=== PATIENT | female | born 1990 | race Caucasian/White ===

== ENCOUNTER → 2016-08-24 | Outpatient (REF) | payer BC, OTHER | LOC: M LAB REF 17:11 | PROVIDERS: ATTEND Physician Assistant | DX: J02.9 Acute pharyngitis, unspecified (principal) ==

== ENCOUNTER → 2016-10-22 | Outpatient (REF) | payer BC, OTHER | LOC: M SFHCLERA 08:53 | PROVIDERS: ATTEND Family Medicine | DX: Z53.8 Procedure and treatment not carried out for other reasons (principal); E53.8 Deficiency of other specified B group vitamins; F41.9 Anxiety disorder, unspecified; E55.9 Vitamin D deficiency, unspecified ==

== ENCOUNTER → 2016-10-28 | Outpatient (REF) | payer BC, OTHER ==
[2016-10-28 12:35] LABS: FREE T4 0.81 NG/DL (0.76-1.46)
== END ==
LOC: M SFHCLERA 08:41
PROVIDERS: ATTEND Family Medicine
DX: E53.8 Deficiency of other specified B group vitamins (principal); F41.9 Anxiety disorder, unspecified; E55.9 Vitamin D deficiency, unspecified

== ENCOUNTER → 2016-12-08 | Outpatient (CLI) | payer BC, OTHER ==
--- NOTE | 2016-12-08 13:13 | REP ---
The PA and lateral chest: There are no comparisons. The lung weber are clear. The cardiac size is normal The geovanna, mediastinum, and bony thorax are unremarkable. Impression: Negative PA and lateral chest. Signed by Danish Caban MD 12/08/2016 01:05 P
== END ==
LOC: M LRY 12:37
PROVIDERS: ATTEND Nurse Practitioner Family
DX: R05 Cough (principal)

== ENCOUNTER → 2016-12-22 | Outpatient (REF) | payer BC, OTHER | LOC: M LAB 16:39 → EDSTATUS 12-23 07:12 | PROVIDERS: ATTEND Nurse Practitioner Adult Health | DX: Z02.89 Encounter for other administrative examinations (principal) ==

== ENCOUNTER → 2016-12-24 | Outpatient (REF) | payer BC, OTHER ==
[2016-12-24 20:32] LABS: CONTROL LINE UCG INT CTR LINE PRESENT
[2016-12-24 20:39] LABS: BASO % 0.2 % (0.0-1.0); EOS % 0.4 % (0.0-3.0); IMMATURE GRANULOCYTE % 0.1 % (0-0); LYMPH % 11.3 % (24.0-44.0); MEAN CORPUSCULAR HEMOGLOBIN 28.2 pg (27.0-33.0); MEAN CORPUSCULAR HGB CONC 32.2 g/dl (32.0-36.5); MEAN CORPUSCULAR VOLUME 87.4 fl (80.0-96.0); MONO # 0.7 10^3/uL (0.0-0.8); MONO % 7.9 % (0.0-5.0); NEUTROPHILS # 6.9 10^3/uL (1.8-7.7); NEUTROPHILS % 80.1 % (36.0-66.0); PLATELET COUNT, AUTOMATED 288 10^3/uL (150-450); RED CELL DISTRIBUTION WIDTH 12.3 % (11.5-14.5); WHITE BLOOD COUNT 8.6 10^3/uL (4.0-10.0)
[2016-12-24 21:25] LABS: ANION GAP 5 MEQ/L (8-16); BLOOD UREA NITROGEN 10 MG/DL (7-18); CARBON DIOXIDE LEVEL 30 MEQ/L (21-32); CHLORIDE LEVEL 103 MEQ/L (98-107); CREATININE FOR GFR 0.63 MG/DL (0.55-1.02); GLOMERULAR FILTRATION RATE > 60.0 (>60); GLUCOSE, FASTING 67 MG/DL (70-105); POTASSIUM SERUM 3.9 MEQ/L (3.5-5.1); SODIUM LEVEL 138 MEQ/L (136-145)
== END ==
LOC: M SFHCLERA 14:38
PROVIDERS: ATTEND Family Medicine
DX: N12 Tubulo-interstitial nephritis, not specified as acute or chronic (principal)

== ENCOUNTER → 2016-12-25 | Outpatient (CLI) | payer BC, OTHER ==
--- NOTE | 2016-12-25 11:19 | REP ---
CT ABDOMEN AND PELVIS WITHOUT IV CONTRAST: CT abdomen and pelvis performed without oral or IV contrast, with sagittal and coronal reconstruction images performed. The visualized lung bases are clear. The liver, gallbladder, spleen, adrenals, pancreas and kidneys are grossly unremarkable. No renal or ureteral calculus is seen and there is no hydroureteronephrosis. There is no abdominal aortic aneurysm. There is no adenopathy. There is no free air or free fluid. There is no bowel wall thickening. There is no evidence of appendicitis. There is no gross pelvic mass. Urinary bladder is not well distended and not well evaluated but there is no gross intraluminal calculus. IMPRESSION: No renal or ureteral calculus and no hydroureteronephrosis. No evidence of appendicitis. Signed by Danish Jackson MD 12/28/2016 09:47 A
== END ==
LOC: M RAD 10:22
PROVIDERS: ATTEND Family Medicine
DX: N12 Tubulo-interstitial nephritis, not specified as acute or chronic (principal)

== ENCOUNTER → 2017-02-01 | Outpatient (REF) | payer BC, OTHER | LOC: M SFHCLERA 16:25 | PROVIDERS: ATTEND Family Medicine | DX: R30.0 Dysuria (principal) ==

== ENCOUNTER 2017-02-21 18:32 | Emergency (ER) | payer BC, OTHER ==
[~2017-02-21] VITALS: Ht 170.2 cm; Wt 72.7 kg
[2017-02-21] MEDS ORDERED: OMEP40CA2 PO (18:39)
[2017-02-21] MEDS ORDERED: POLY1POW4 (18:39)
[2017-02-21] MEDS ORDERED: METOCLOPRAMIDE INJ 10MG/2ML VIAL (J2765) IV ONE (19:30)
[2017-02-21] MEDS ORDERED: NS 1,000 ML IV ONE (19:30)
[2017-02-21] MEDS ORDERED: PANTOPRAZOLE 40MG INJ (PROTONIX) (C9113) IV ONE (19:30)
[2017-02-21 19:51] LABS: CONTROL LINE UCG INT CTR LINE PRESENT
--- NOTE | 2017-02-21 19:53 | ECGEPIP ---
Stationary ECG Study [facility] - ED Test Date: 2017-02-21 Pat Name: QUEENIE TAPIA Department: Room: - Gender: F Homogenizer Operator: VieiraB: 1990 Requested By: TOÑA ROBERT PA-C Order Number: [id number] Reading MD: Eunice Bosch Measurements Intervals Bulan Rate: 56 P: 65 SD: 187 QRS: 82 QRSD: 93 T: 56 QT: 402 QTc: 391 Interpretive Statements SINUS BRADYCARDIA NO OLD ECG FOR COMPARISON Electronically Signed On 02-21-2017 19:53:39 EST by Eunice Bosch
[2017-02-21 20:06] LABS: BASO % 0.3 % (0.0-1.0); EOS # 0.1 10^3/uL (0.0-0.50); IMMATURE GRANULOCYTE % 0.2 % (0-0); LYMPH # 1.7 10^3/uL (1.5-6.5); LYMPH % 28.4 % (24.0-44.0); MEAN CORPUSCULAR HEMOGLOBIN 28.3 pg (27.0-33.0); MEAN CORPUSCULAR HGB CONC 32.8 g/dl (32.0-36.5); MEAN CORPUSCULAR VOLUME 86.4 fl (80.0-96.0); MONO # 0.5 10^3/uL (0.0-0.8); MONO % 7.8 % (0.0-5.0); NEUTROPHILS # 3.7 10^3/uL (1.8-7.7); NEUTROPHILS % 62.3 % (36.0-66.0); PLATELET COUNT, AUTOMATED 253 10^3/uL (150-450); RED CELL DISTRIBUTION WIDTH 12.6 % (11.5-14.5); WHITE BLOOD COUNT 5.9 10^3/uL (4.0-10.0)
[2017-02-21 20:43] LABS: ALBUMIN 3.8 GM/DL (3.2-5.2); ALBUMIN/GLOBULIN RATIO 1.23 (1.00-1.93); ALKALINE PHOSPHATASE 73 U/L (45-117); ALT/SGPT 12 U/L (12-78); ANION GAP 4 MEQ/L (8-16); AST/SGOT 8 U/L (7-37); BILIRUBIN,DIRECT 0.1 MG/DL (0.0-0.2); BILIRUBIN,TOTAL 0.5 MG/DL (0.2-1.0); BLOOD UREA NITROGEN 7 MG/DL (7-18); CARBON DIOXIDE LEVEL 31 MEQ/L (21-32); CHLORIDE LEVEL 106 MEQ/L (98-107); CREATININE FOR GFR 0.44 MG/DL (0.55-1.02); GLOMERULAR FILTRATION RATE > 60.0 (>60); GLUCOSE, FASTING 86 MG/DL (70-105); POTASSIUM SERUM 3.8 MEQ/L (3.5-5.1); SODIUM LEVEL 141 MEQ/L (136-145); TOTAL PROTEIN 6.9 GM/DL (6.4-8.2)
[2017-02-21] MEDS ORDERED: GI COCKTAIL 50ML BTL(HYOSCYAMINE/MAALOX/LIDOCAINE VISCOUS)(1:3:1) PO ONE (21:15)
[2017-02-21] MEDS ORDERED: REGL10TA6 PO (21:59)
[2017-02-21] MEDS ORDERED: NEXI40CA PO (21:59)
[2017-02-21 22:10] VITALS: BP 115/61
== END 2017-02-21 22:13 | disposition home or self-care (01) ==
LOC: M ED 18:32
DX: K29.70 Gastritis, unspecified, without bleeding (principal); K21.9 Gastro-esophageal reflux disease without esophagitis; R00.1 Bradycardia, unspecified; Z79.899 Other long term (current) drug therapy; Z87.442 Personal history of urinary calculi; Z84.1 Family history of disorders of kidney and ureter; Z83.79 Family history of other diseases of the digestive system; Z82.49 Family history of ischemic heart disease and other diseases of the circulatory system
CPT/HCPCS: 80048; 80076; 81001; 83690; 84703; 85025; 87086; 93005; 96374; 96375; 99284; C9113; J2765

== ENCOUNTER → 2017-04-26 | Outpatient (REF) | payer OTHER | LOC: M SFHCLERA 18:56 | DX: J02.9 Acute pharyngitis, unspecified (principal) ==

== ENCOUNTER → 2017-08-12 | Outpatient (REF) | payer OTHER ==
[2017-08-12 17:12] LABS: ALBUMIN 4.4 GM/DL (3.2-5.2); ALBUMIN/GLOBULIN RATIO 1.33 (1.00-1.93); ALKALINE PHOSPHATASE 68 U/L (45-117); ALT/SGPT 14 U/L (12-78); AST/SGOT 8 U/L (7-37); BILIRUBIN,DIRECT 0.1 MG/DL (0.0-0.2); BILIRUBIN,TOTAL 0.5 MG/DL (0.2-1.0); BLOOD UREA NITROGEN 8 MG/DL (7-18); CREATININE FOR GFR 0.67 MG/DL (0.55-1.30); FERRITIN 7 NG/ML (8-252); GLOMERULAR FILTRATION RATE > 60.0 (>60); IRON (FE) 106 UG/DL (50-170); PERCENT SATURATION 26.4 % (13.2-45.0); TOTAL IRON BINDING CAPACITY 401 UG/DL (250-450); TOTAL PROTEIN 7.7 GM/DL (6.4-8.2)
[2017-08-12 17:16] LABS: BASO % 0.5 % (0.0-1.0); EOS % 0.8 % (0.0-3.0); HEMATOCRIT 39.2 % (36.0-47.0); HEMOGLOBIN 12.8 g/dl (12.0-15.5); IMMATURE GRANULOCYTE % 0.3 % (0-3.0); LYMPH # 1.2 10^3/uL (1.5-6.5); MEAN CORPUSCULAR HEMOGLOBIN 28.5 pg (27.0-33.0); MEAN CORPUSCULAR HGB CONC 32.7 g/dl (32.0-36.5); MEAN CORPUSCULAR VOLUME 87.3 fl (80.0-96.0); MONO # 0.4 10^3/uL (0.0-0.8); MONO % 11.2 % (0.0-5.0); NEUTROPHILS # 2.1 10^3/uL (1.8-7.7); NEUTROPHILS % 55.2 % (36.0-66.0); PLATELET COUNT, AUTOMATED 288 10^3/uL (150-450); RED BLOOD COUNT 4.49 10^6/uL (4.00-5.40); WHITE BLOOD COUNT 3.8 10^3/uL (4.0-10.0)
[2017-08-17 08:06] LABS: TISSUE TRANSGLUTAMINASE IgA <2 U/mL (0-3)
[2017-08-17 08:06] LABS: IGASUB3 14.3 mg/dL (13.4-97.9); IgA SERUM (part of Subclasses) 154 mg/dL (87-352)
== END ==
LOC: M LAB REF 15:58
DX: R10.13 Epigastric pain (principal)
CPT/HCPCS: 82565

== ENCOUNTER → 2017-10-15 | Outpatient (REF) | payer OTHER ==
[2017-10-15 11:24] LABS: FERRITIN 12 NG/ML (8-252); IRON (FE) 64 UG/DL (50-170); TOTAL IRON BINDING CAPACITY 400 UG/DL (250-450)
[2017-10-15 11:30] LABS: FOLATE 16.7 NG/ML; VITAMIN B12 LEVEL 878 PG/ML
[2017-10-19 00:07] LABS: ANTI-PARIETAL CELL ANTIBODY 14.5 Units (0.0-20.0)
== END ==
LOC: M LAB REF 11:04
DX: D50.9 Iron deficiency anemia, unspecified (principal); E53.9 Vitamin B deficiency, unspecified

== ENCOUNTER 2017-11-29 10:26 | Day surgery (SDC) | payer OTHER ==
[2017-11-29] MEDS: LR 1,000 ML IV (11:07)
[2017-11-29 11:23] LABS: CONTROL LINE UCG INT CTR LINE PRESENT; URINE PREG TEST NEGATIVE (NEGATIVE)
[2017-11-29] MEDS ORDERED: dexameTHASONE 4 MG/ML 1ML VIAL (J1100) As Ordered (12:38)
[2017-11-29] MEDS ORDERED: ROCURONIUM BROMIDE 50 MG/5 ML VIAL As Ordered (12:38)
[2017-11-29] MEDS ORDERED: SUCCINYLCHOLINE 100 MG/5 ML SYRINGE (J0330) As Ordered ×2 (12:38→13:20)
[2017-11-29] MEDS ORDERED: PROPOFOL 200 MG/20 ML VIAL As Ordered (12:38)
[2017-11-29] MEDS ORDERED: LIDOCAINE 2% INJ 100 MG/5 ML SDV (FOR ANES.) As Ordered (12:38)
[2017-11-29] MEDS ORDERED: ONDANSETRON 4MG/2ML VIAL (J2405) As Ordered (12:38)
[2017-11-29] MEDS ORDERED: fentaNYL 100 MCG/2 ML INJECTION (J3010) As Ordered ×2 (12:39→14:22)
[2017-11-29] MEDS ORDERED: MIDAZOLAM INJ 2 MG/2 ML VIAL (J2250) As Ordered (12:39)
[2017-11-29] MEDS ORDERED: ePHEDrine SULFATE 25 MG/5 ML(5MG/ML) SYRINGE As Ordered (13:47)
[2017-11-29] MEDS: BUPIVACAINE/EPIN 0.5% 30 ML VIAL As Ordered (13:49)
[2017-11-29] MEDS: LIDOCAINE W/EPINEPHRINE 1% 20ML VIAL As Ordered (13:50)
[2017-11-29] MEDS: fentaNYL 100 MCG/2 ML INJECTION (J3010) IV ×4 (14:23→14:38)
[2017-11-29] MEDS ORDERED: PERCOCET 5MG/325MG TAB PO (14:30)
[2017-11-29] MEDS ORDERED: NORCO, ANEXSIA 5/325MG TABLET (HYDROcodone/ACETAMINOPHEN) PO (14:30)
[2017-11-29] MEDS ORDERED: LR 1,000 ML IV ×2 (14:30)
[2017-11-29] MEDS: ONDANSETRON 4MG/2ML VIAL (J2405) IV (14:41)
== END 2017-11-29 16:13 | disposition home or self-care (01) ==
LOC: M SDC 10:26
DX: J35.01 Chronic tonsillitis (principal)
CPT/HCPCS: 42826

== ENCOUNTER → 2017-12-03 | Outpatient (CLI) | payer OTHER | LOC: M RAD 08:31 | DX: K82.8 Other specified diseases of gallbladder (principal); R10.13 Epigastric pain; D50.9 Iron deficiency anemia, unspecified ==

== ENCOUNTER 2017-12-08 22:55 | Emergency (ER) | payer OTHER ==
[2017-12-08] MEDS: GI COCKTAIL 50ML BTL(HYOSCYAMINE/MAALOX/LIDOCAINE VISCOUS)(1:3:1) PO (23:25)
[2017-12-08] MEDS: ONDANSETRON 4MG/2ML VIAL (J2405) IV (23:25)
[2017-12-08] MEDS: NS 1,000 ML IV (23:27)
[2017-12-08 23:31] LABS: BASO % 0.4 % (0.0-1.0); EOS # 0.1 10^3/uL (0.0-0.50); EOS % 1.4 % (0.0-3.0); HEMATOCRIT 34.1 % (36.0-47.0); HEMOGLOBIN 11.1 g/dl (12.0-15.5); IMMATURE GRANULOCYTE % 0.4 % (0-3.0); LYMPH # 1.4 10^3/uL (1.5-6.5); LYMPH % 27.8 % (24.0-44.0); MEAN CORPUSCULAR HEMOGLOBIN 28.2 pg (27.0-33.0); MEAN CORPUSCULAR HGB CONC 32.6 g/dl (32.0-36.5); MEAN CORPUSCULAR VOLUME 86.8 fl (80.0-96.0); MONO # 0.5 10^3/uL (0.0-0.8); MONO % 9.3 % (0.0-5.0); NEUTROPHILS # 3.1 10^3/uL (1.8-7.7); NEUTROPHILS % 60.7 % (36.0-66.0); PLATELET COUNT, AUTOMATED 314 10^3/uL (150-450); RED BLOOD COUNT 3.93 10^6/uL (4.00-5.40); RED CELL DISTRIBUTION WIDTH 12.1 % (11.5-14.5); WHITE BLOOD COUNT 5.1 10^3/uL (4.0-10.0)
[2017-12-08 23:57] LABS: ANION GAP 8 MEQ/L (8-16); BLOOD UREA NITROGEN 11 MG/DL (7-18); CALCIUM LEVEL 8.5 MG/DL (8.5-10.1); CARBON DIOXIDE LEVEL 27 MEQ/L (21-32); CHLORIDE LEVEL 107 MEQ/L (98-107); CREATININE FOR GFR 0.57 MG/DL (0.55-1.30); GLOMERULAR FILTRATION RATE > 60.0 (>60); GLUCOSE, FASTING 93 MG/DL (70-100); POTASSIUM SERUM 3.9 MEQ/L (3.5-5.1); SODIUM LEVEL 142 MEQ/L (136-145)
== END 2017-12-09 00:45 | disposition home or self-care (01) ==
LOC: M ED 12-09 00:45
DX: G89.18 Other acute postprocedural pain (principal); E55.9 Vitamin D deficiency, unspecified; Z79.899 Other long term (current) drug therapy
CPT/HCPCS: J2405

== ENCOUNTER → 2017-12-13 | Outpatient (CLI) | payer OTHER | LOC: M RAD 08:06 | DX: K82.8 Other specified diseases of gallbladder (principal); R10.13 Epigastric pain; D50.9 Iron deficiency anemia, unspecified | CPT/HCPCS: J2805 ==

== ENCOUNTER → 2018-08-22 | Outpatient (CLI) | payer OTHER ==
[~2018-08-22] MED LIST: COLA100C5 PO; CYAN1000VL IM; DULO1CAP PO; LINZ72CA PO; NAPR1TAB86 PO; NEXI40CA PO; OMEP40CA2 PO; PANT40TA3 PO; POLY33503; PROP20TA72 PO; PROT1TAB2 PO; REGL10TA6 PO; VITA-122 PO; VITA10002 PO; ZOFR4TAB14 PO
--- NOTE | 2018-08-22 10:28 | REP ---
DUPLEX DOPPLER ULTRASOUND OF CELIAC ARTERY: Real-time ultrasound evaluation and duplex Doppler interrogation of celiac artery is performed to evaluate for possible stenosis. The peak systolic velocity of the abdominal aorta is 187 cm/s. The peak systolic velocity of the celiac artery in inspiration is 369.9 cm/s increasing to 421.4 cm/s with expiration. The flexion angle of the celiac with respect to the aorta in inspiration is 74 degrees and increases to 98 in expiration. Peak systolic velocity of the proximal superior mesenteric artery is 138 cm/s and more distally to 16.3 cm/s with deflection angle 56 degrees. IMPRESSION: Velocity measurements and deflection angle of celiac artery suggestive of median arcuate ligament syndrome. Further evaluation could be made with CT angiogram. Electronically Signed by Danish Jackson MD 08/22/2018 04:19 P
== END ==
LOC: M RAD 07:56
PROVIDERS: ATTEND Internal Medicine Gastroenterology
DX: R10.13 Epigastric pain (principal)

== ENCOUNTER 2018-10-04 21:20 | Emergency (ER) | payer OTHER ==
[~2018-10-04] VITALS: Ht 170.2 cm; Wt 65.0 kg
[~2018-10-04 21:20] MED LIST changes: +CYAN100049 PO; -DULO1CAP PO; +DULO1CAP4 PO; -OMEP40CA2 PO; +OMEP40CA97 PO; -VITA10002 PO
[2018-10-04 21:22] VITALS: BP 131/72
[2018-10-04] MEDS ORDERED: ADDE10CA3 PO (21:27)
[2018-11-21] MEDS ORDERED: NUVAMIS2 PV (10:31)
== END 2018-10-04 21:38 | disposition left against medical advice (07) ==
LOC: M ED 21:20
DX: Z53.29 Procedure and treatment not carried out because of patient's decision for other reasons (principal)

== ENCOUNTER → 2018-11-11 | Outpatient (CLI) | payer OTHER ==
[~2018-11-11] MED LIST changes: +ADDE10CA3 PO; +ISOVUE-370 76% 100ML VIAL (Q9967) As Ordered ONE; +NUVAMIS2 PV; +OMEP40CA2 PO; -OMEP40CA97 PO
--- NOTE | 2018-11-14 13:37 | REP ---
CT ANGIOGRAPHY OF THE UPPER ABDOMEN AND VISCERAL ARTERIES. HISTORY: Celiac artery compression syndrome. Comparison sonography August 22, 2018 showed elevated velocities in the proximal celiac axis with increase in expiration. TECHNIQUE: Helical scanning is acquired during inspiration. 3 mm axial images are reformatted. Coronal and sagittal MPR and MIP images are generated and 3D surface rendered color images are generated and viewed in a rotational fashion. CT CONTRAST DOSE: 100 mL of intravenous Isovue 370. FINDINGS: Pulmonary digital patcher bowling ball radiograph is unremarkable. The visualized lung bases are clear. The liver and the spleen are normal in size homogeneous in texture except for a small focal hypervascular area in the inferior tip of the right lobe of the liver 8 mm in diameter consistent with a small hemangioma. No pancreatic abnormality is observed. No adrenal lesion is seen. Kidneys enhance symmetrically. VASCULAR FINDINGS: The suprarenal and infrarenal abdominal aorta are normal in caliber. The left renal artery is duplicated. There is no evidence of renal artery stenosis. The superior mesenteric and the inferior mesenteric arteries are patent from their origins and unremarkable. The celiac axis shows no evidence of stenosis, compression, or abnormal dilation. There is no evidence of visceral artery aneurysm. 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 Electronically Signed by Bruno Gaytan MD 11/14/2018 02:19 P
== END ==
LOC: M RAD 17:03
PROVIDERS: ATTEND Surgery Vascular Surgery
DX: I77.4 Celiac artery compression syndrome (principal)

== ENCOUNTER → 2018-11-17 | Outpatient (CLI) | payer OTHER ==
[~2018-11-17] MED LIST changes: -ISOVUE-370 76% 100ML VIAL (Q9967) As Ordered ONE
[2018-11-17 18:32] LABS: BLOOD UREA NITROGEN 9 MG/DL (7-18); CALCIUM LEVEL 9.3 MG/DL (8.5-10.1); CARBON DIOXIDE LEVEL 29 MEQ/L (21-32); CHLORIDE LEVEL 104 MEQ/L (98-107); CREATININE FOR GFR 0.62 MG/DL (0.55-1.30); GLOMERULAR FILTRATION RATE > 60.0 (>60); GLUCOSE, FASTING 65 MG/DL (70-100); POTASSIUM SERUM 3.8 MEQ/L (3.5-5.1); SODIUM LEVEL 142 MEQ/L (136-145)
[2018-11-17 18:38] LABS: HEMATOCRIT 37.5 % (36.0-47.0); HEMOGLOBIN 12.3 g/dl (12.0-15.5); MEAN CORPUSCULAR HEMOGLOBIN 28.3 pg (27.0-33.0); MEAN CORPUSCULAR HGB CONC 32.8 g/dl (32.0-36.5); MEAN CORPUSCULAR VOLUME 86.4 fl (80.0-96.0); PLATELET COUNT, AUTOMATED 340 10^3/uL (150-450); RED BLOOD COUNT 4.34 10^6/uL (4.00-5.40)
== END ==
LOC: M LAB 17:12
PROVIDERS: ATTEND Surgery Vascular Surgery
DX: I77.4 Celiac artery compression syndrome (principal); R10.13 Epigastric pain

== ENCOUNTER → 2018-11-21 | Outpatient (CLI) | payer OTHER ==
[~2018-11-21] MED LIST changes: +BUPIVACAINE HCL 0.5% 10 ML VIAL As Ordered ONE; +ISOVUE-300 61% 50ML VIAL (Q9967) As Ordered ONE; +LIDOCAINE 2% MDV 20 ML VIAL As Ordered ONE; +MIDAZOLAM INJ 2 MG/2 ML VIAL (J2250) As Ordered ONE; +MORPHINE 10 MG/ML 1ML VIAL (J2270) As Ordered ONE; +diphenhydrAMINE INJ 50MG/ML VIAL (J1200) As Ordered ONE; +fentaNYL 100 MCG/2 ML INJECTION (J3010) As Ordered ONE
[2018-11-21 14:59] VITALS: BP 114/72
--- NOTE | 2018-11-24 18:55 | ROOPDOC ---
[facility] Report Of Operation Report of Operation DATE OF PROCEDURE: 11/21/2018 PREOPERATIVE DIAGNOSES: Abdominal pain, ultrasound showing celiac artery compression syndrome. POSTOPERATIVE DIAGNOSES: Abdominal pain,. PROCEDURE: Abdominal aortogram in lateral projection with inspiration and expiration imaging Right common femoral arteriotomy closure with a 5 Trinidadian Mynx closure device. SURGEON: Dr. Popeye Avitia M.D. RV REPAIRER: Altagracia Radford INDICATION: Patient is a 28-year-old female with significant history of abdominal pain who underwent an ultrasound which showed celiac artery compression syndrome with elevated velocities in the celiac artery. Patient underwent a CT angiogram which showed no stenosis of the celiac or superior mesenteric arteries and no abnormalities are compression noted. Patient was evaluated and recommendation was to undergo an angiogram with possible angioplasty, stent and/or arthrectomy. The procedure was described and explained in detail to the patient including drawing of pictures demonstrating the procedure and pertinent anatomy. Risks, benefits and alternative treatment options were discussed with the patient. Alternative treatment options included but were not limited to no intervention. Benefits include but were not limited to evaluation of arterial inflow to the intestine with possible intervention improving blood flow to the intestine. Risks included but were not limited to infection, bleeding, renal failure requiring hemodialysis, retroperitoneal hematoma, possible need for surgical intervention, possible requirement for transfusion of blood products, contrast dye reaction, allergic reaction and/or complication from the prepping and draping materials, sedation related complication, scarring of the skin, bruising, nerve injury, anesthetic complications, cerebrovascular accident, myocardial infarction, pulmonary embolus, deep venous thrombosis, loss of limb, loss of life, poor satisfaction and poor outcome. Risks of not performing the procedure included but were not limited to worsening of current symptoms, worsening of atherosclerotic arterial occlusive disease resulting in continued pain and possible . Patient's questions were answered. Patient voices understanding of these risks, benefits and alternative treatment options. Patient voices acceptance of the risks associated with angiography with possible angioplasty, stent and/or atherectomy and agrees to proceed with the procedure excepting the associated risks of the procedure. No guarantees or promises were made to the patient regarding the results or outcome of the procedure. ANESTHESIA: Local with sedation with 2 mg of Versed, 50 g of Benadryl and 20 cc of 2% lidocaine mixed with 0.5% Marcaine. SEDATION TIME: 10:49 AM to 11:14 AM for a total of 25 minutes. The sedation was administered by registered nurse in the room. The cardiopulmonary monitoring during sedation was performed by registered nurse in the room. Administration of sedation and cardiopulmonary monitoring were performed under my direct supervision and direction. I was present for and directed the entire case. There were no sedation related complications. Patient was stable post sedation and returned to pre-sedation status. ESTIMATED BLOOD LOSS: 15 mL. IV FLUIDS: 150 mL. HEPARIN: None PROTAMINE: None FLUORO TIME: 0.7 minutes CONTRAST: 20 mL of Isovue 300 COMPLICATIONS: None DRAINS: None SPECIMENS: None IMPLANTS: Right common femoral arteriotomy closure with a Mynx closure device. PROCEDURE: The patient was taken to the angiography suite, placed supine on the angiography room table and prepped and draped in a standard surgical fashion. A procedural time out was performed by myself and the members of the team in the procedure room confirming the correct procedure, patient and laterality. The right common femoral artery was then cannulated with a micropuncture needle after anesthetizing the overlying skin and subcutaneous tissue with 2% lidocaine mixed with 0.5% Marcaine. The micropuncture wire was advanced through the micropuncture needle which was upsized to a micropuncture sheath. The Dockery wire was then advanced through the micropuncture sheath which was upsized to a 5 Trinidadian sheath. The Omni flush catheter was advanced over the Dockery wire placed in the aorta at the level of the diaphragm and an aortogram was performed with deep inspiration and expiration views. . Catheters and wires were removed. The arteriotomy in the right common femoral artery was closed using a 5 Trinidadian Mynx closure device with an additional 10 min. of adjunctive pressure applied for hemostasis, which was noted. Dressings were then applied. Patient tolerated the procedure well. All instrument, sponge and needle counts were correct at the end of the case. There were no complications. Dr. Avitia was present for and directed the entire case. The patient was transferred to the holding area and subsequently discharged home. The results and findings of the angiography were discussed with the patient in detail with all of her questions being answered. RADIOLOGIC SUPERVISION AND INTERPRETATION: ABDOMINAL AORTOGRAM AND LATERAL PROJECTION WITH INSPIRATION AND EXPIRATION IMAGING: There was mild deforming of the celiac artery with deep inspiration and expiration views. There was no obvious stenosis or occlusion in the celiac or superior mesenteric artery. A 5 Trinidadian minx closure device was used to close the arteriotomy in the right common femoral artery. CONCLUSION: Patient underwent an angiogram showing mild celiac artery compressio n syndrome. PLAN: Patient will be referred to a center specializing in celiac artery compression syndrome for further evaluation and treatment. Jair Avitia MD Nov 21, 2018 21:37
== END ==
LOC: M IRPRO 09:49
PROVIDERS: ATTEND Surgery Vascular Surgery
DX: I77.4 Celiac artery compression syndrome (principal); R10.9 Unspecified abdominal pain
CPT/HCPCS: 36200; 75625; 99152; 99153; C1760; C1769; C1887; C1894; G0269; J1200; J2250; Q9967

== ENCOUNTER 2019-01-04 13:17 | Emergency (ER) | payer OTHER ==
[~2019-01-04] VITALS: Ht 170.2 cm; Wt 69.0 kg
[~2019-01-04 13:17] MED LIST changes: -BUPIVACAINE HCL 0.5% 10 ML VIAL As Ordered ONE; -ISOVUE-300 61% 50ML VIAL (Q9967) As Ordered ONE; -LIDOCAINE 2% MDV 20 ML VIAL As Ordered ONE; -MIDAZOLAM INJ 2 MG/2 ML VIAL (J2250) As Ordered ONE; -MORPHINE 10 MG/ML 1ML VIAL (J2270) As Ordered ONE; -OMEP40CA2 PO; +OMEP40CA97 PO; -diphenhydrAMINE INJ 50MG/ML VIAL (J1200) As Ordered ONE; -fentaNYL 100 MCG/2 ML INJECTION (J3010) As Ordered ONE
[2019-01-04 14:14] LABS: BASO % 0.3 % (0.0-1.0); EOS # 0.1 10^3/uL (0.0-0.5); EOS % 1.2 % (0.0-3.0); HEMATOCRIT 38.8 % (36.0-47.0); HEMOGLOBIN 12.6 g/dl (12.0-15.5); LYMPH # 1.1 10^3/uL (1.5-5.0); LYMPH % 19.4 % (24.0-44.0); MEAN CORPUSCULAR HEMOGLOBIN 28.4 pg (27.0-33.0); MEAN CORPUSCULAR HGB CONC 32.5 g/dl (32.0-36.5); MEAN CORPUSCULAR VOLUME 87.6 fl (80.0-96.0); MONO # 0.4 10^3/uL (0.0-0.8); MONO % 6.2 % (0.0-5.0); NEUTROPHILS # 4.2 10^3/uL (1.5-8.5); NEUTROPHILS % 72.7 % (36.0-66.0); PLATELET COUNT, AUTOMATED 344 10^3/uL (150-450); RED BLOOD COUNT 4.43 10^6/uL (4.00-5.40); WHITE BLOOD COUNT 5.8 10^3/uL (4.0-10.0)
[2019-01-04] MEDS ORDERED: KETOROLAC 30 MG/ML VIAL (J1885) IV ONE (14:30)
[2019-01-04] MEDS ORDERED: NS 1,000 ML IV ONE (14:30)
[2019-01-04] MEDS ORDERED: ONDANSETRON 4MG/2ML VIAL (J2405) IV ONE (14:30)
[2019-01-04 14:37] LABS: ALBUMIN 3.5 GM/DL (3.2-5.2); ALT/SGPT 16 U/L (12-78); BILIRUBIN,DIRECT 0.2 MG/DL (0.0-0.2); BILIRUBIN,TOTAL 0.5 MG/DL (0.2-1.0); BLOOD UREA NITROGEN 11 MG/DL (7-18); CALCIUM LEVEL 9.5 MG/DL (8.5-10.1); CARBON DIOXIDE LEVEL 27 MEQ/L (21-32); CHLORIDE LEVEL 104 MEQ/L (98-107); CREATININE FOR GFR 0.62 MG/DL (0.55-1.30); GLOMERULAR FILTRATION RATE > 60.0 (>60); GLUCOSE, FASTING 115 MG/DL (70-100); LIPASE 169 U/L (73-393); POTASSIUM SERUM 3.5 MEQ/L (3.5-5.1); SODIUM LEVEL 138 MEQ/L (136-145); TOTAL PROTEIN 7.4 GM/DL (6.4-8.2)
[2019-01-04] MEDS ORDERED: ISOVUE-370 76% 100ML VIAL (Q9967) As Ordered ONE (15:12)
[2019-01-04] MEDS ORDERED: METOCLOPRAMIDE INJ 10MG/2ML VIAL (J2765) IV ONE (15:30)
[2019-01-04] MEDS ORDERED: BACT800T5 PO (15:56)
[2019-01-04 16:01] VITALS: BP 100/51
--- NOTE | 2019-01-04 16:15 | REP ---
CT ABDOMEN AND PELVIS WITH IV CONTRAST: TECHNIQUE: Axial contrast enhanced images from the lung bases to the pubic symphysis using 100 mL Isovue 370 intravenous contrast material with multiplanar reformations. Visualized lung bases are clear. Liver, spleen, adrenals, pancreas and kidneys are unremarkable in appearance. Gallbladder is grossly unremarkable. There is no biliary dilatation. There is no abdominal aortic aneurysm. There is no adenopathy. There is no free air or free fluid. No bowel wall thickening is seen. The appendix is normal. No pelvic mass is seen. Urinary bladder is mildly distended and grossly unremarkable. IMPRESSION: Essentially negative CT abdomen and pelvis. No acute abnormalities detected. Electronically Signed by Danish Jackson MD 01/04/2019 04:43 P
== END 2019-01-04 16:07 | disposition home or self-care (01) ==
LOC: M ED 13:17
DX: N30.90 Cystitis, unspecified without hematuria (principal); K21.9 Gastro-esophageal reflux disease without esophagitis; I77.4 Celiac artery compression syndrome; Z88.8 Allergy status to other drugs, medicaments and biological substances; Z79.899 Other long term (current) drug therapy; Z79.3 Long term (current) use of hormonal contraceptives
CPT/HCPCS: 36415; 74177; 80048; 80076; 81001; 83690; 84702; 85025; 96361; 96374; 96375; 99284; J1885; J2405; J2765; Q9967